=== PATIENT | male | born 1940 | race Caucasian/White ===

== ENCOUNTER → 2018-12-04 | Emergency (ER) | payer OTHER ==
[~2018-12-04] VITALS: Ht 165.1 cm; Wt 81.6 kg
== END | disposition left against medical advice (07) ==
LOC: ER 18:15
DX: Z53.20 Procedure and treatment not carried out because of patient's decision for unspecified reasons (principal)

== ENCOUNTER 2019-03-24 17:45 | Emergency (ER) | payer OTHER ==
[~2019-03-24] VITALS: Ht 177.8 cm; Wt 86.2 kg
== END 2019-03-24 20:25 | disposition home or self-care (01) ==
LOC: ER 17:45
DX: L03.116 Cellulitis of left lower limb (principal); L03.115 Cellulitis of right lower limb

== ENCOUNTER 2023-04-02 12:44 | Inpatient (IN) | payer OTHER ==
[~2023-04-02] VITALS: Ht 157.5 cm; Wt 68.0 kg
--- NOTE | 2023-04-02 13:19 | NUR ---
PTE ALERTA Y ORIENTADO X3 EL MISMO LLEGA EN AMBULANCA REFERIDO POR DR. RENE OLMEDO PTE REFIERE PRESENTAR DOS SEMANAS CON LAS COSTILLAS ROTAS.
--- NOTE | 2023-04-02 13:52 | NUR ---
SE RECIBE PACIENTE ALERTA Y ORIENTADO X3, QUIEN REFIERE QUE VIENE POR PARTE DEL DR. BECKMANBAN OLMEDO DEBIDO A QUE LLEVA DOS SEMANAS CON FRACTURA EN LIEN DEL LADO GERARDO. SE MONITOREAN VS Y SE UBICA
--- NOTE | 2023-04-02 15:46 | NUR ---
EVALUA PTE. SE EDUCA SOBRE [place] MEDICO, REFIERE COMPRENDER. SE REALIZAN MUESTRAS DE LABORATORIO BAJO MEDIDAS ASEPTICAS. SE ADMINISTRA MEDICAMENTO MARIANO ORDEN MEDICA. ANTOINE X REALIZADOS. PTE MANEJADO POR .
[2023-04-06] MEDS ORDERED: TRAMADOL HCL50 MG PO (13:48)
[2023-04-06] MEDS ORDERED: GABAPENTIN300 MG PO (13:49)
[2023-04-06] MEDS ORDERED: ELIQUIS5 MG PO (13:49)
[2023-04-06] MEDS ORDERED: PREVACID 24HR15 MG PO (13:49)
[2023-04-06] MEDS ORDERED: LIDODERM1 EACH TOP (13:49)
== END 2023-04-06 21:29 | disposition home or self-care (01) | DRG 309 ==
LOC: ER 12:44 → MEDI 21:53
PROVIDERS: Nurse Practitioner Family; ADMIT Internal Medicine; ATTEND Internal Medicine
PROC: 4A12X4Z Monitoring of Cardiac Electrical Activity, External Approach (ICD-10-PCS; principal; 2023-04-02)
PROC: 3E0F7SF Introduction of Other Gas into Respiratory Tract, Via Natural or Artificial Opening (ICD-10-PCS; 2023-04-02)
PROC: B246ZZZ Ultrasonography of Right and Left Heart (ICD-10-PCS; 2023-04-02)
DX: I48.91 Unspecified atrial fibrillation (principal); I25.810 Atherosclerosis of coronary artery bypass graft(s) without angina pectoris; G89.21 Chronic pain due to trauma; M54.59 Other low back pain; M25.552 Pain in left hip; I11.9 Hypertensive heart disease without heart failure; E11.65 Type 2 diabetes mellitus with hyperglycemia; K59.09 Other constipation; E03.9 Hypothyroidism, unspecified; Z74.01 Bed confinement status; Z95.1 Presence of aortocoronary bypass graft; Z79.4 Long term (current) use of insulin